=== PATIENT | female | born 1995 | race Caucasian/White ===

== ENCOUNTER → 2022-01-25 16:16 | Outpatient (BNVA) | payer OTHER, SELFPAY | PROVIDERS: Family Provider Family Medicine; Visit Provider Family Medicine | DX: Z00.00 Encounter for general adult medical examination without abnormal findings (principal); Z13.220 Encounter for screening for lipoid disorders; R00.2 Palpitations | CPT/HCPCS: 80053; 80061; 84439; 84443; 85025; 87491; 87591; 87624; 87661 ==

== ENCOUNTER → 2022-02-01 13:53 | Outpatient (BNVA) | payer OTHER, SELFPAY | PROVIDERS: Family Provider Family Medicine; PCP Family Medicine; Visit Provider Family Medicine | DX: Z20.9 Contact with and (suspected) exposure to unspecified communicable disease (principal) | CPT/HCPCS: 80074; 86695; 86696; 86705; 86706; 87077; 87186; 87340; 87806 ==

== ENCOUNTER → 2022-05-17 09:22 | Outpatient (BNVA) | payer OTHER, SELFPAY | PROVIDERS: Family Provider Family Medicine; PCP Family Medicine; Visit Provider Family Medicine | DX: R30.0 Dysuria (principal) | CPT/HCPCS: 81000; 87077; 87086; 87184 ==

== ENCOUNTER 2022-08-18 00:48 | Emergency (ER) | payer OTHER, SELFPAY ==
[2022-08-18 00:53] VITALS: BP 130/87; PULSE 100; RESP 18; TEMP 36.8; O2SAT 98; BMI 25.0
--- NOTE | 2022-08-18 01:04 | ED_ITS ---
HPI - Abdominal Pain General: Chief Complaint: Abdominal Pain Stated Complaint: abd pain Time Seen by Provider: 08/18/22 00:53 Source: patient Mode of arrival: ambulatory Limitations: no limitations History of Present Illness: 27-year-old female states she has been having upper abdominal pain over the last 3 days she states she had a tries to drink in [facility] and has been having epigastric along with right upper quadrant pain since then. States she has been having some nausea as well states pain is currently 3 out of 10 denies any fever denies any vomiting denies any diarrhea. She denies any worsening proving factors. Associated Symptoms: Reports nausea; Denies chills, dysuria and fever(s) Review of Systems Const: Denies: fever(s), chills, body aches or change in appetite Eyes: Denies: blurry vision or eye discomfort ENMT: Denies: throat pain or dental pain Card: Denies: chest pain Resp: Denies: dyspnea GI: Reports: abdominal pain and nausea : Denies: dysuria Musc: Denies: neck pain or back pain Skin/Breast: Denies: rash Neuro: Denies: headache(s) Psych: Denies: depression Brian/Lymph: Denies: easy bruising All/Imm: Denies: urticaria PFSH ED PFSH: Medical History (Updated 08/18/22 @ 02:30 by Juventino Tello MD) No pertinent past medical history Social History (Updated 08/18/22 @ 01:05 by Juventino Tello MD) Substance/Drug Use: never Physical Exam Const: COMMON NORMALS: no acute distress, patient oriented x3 and healthy appearing HENMT: COMMON NORMALS: normocephalic and atraumatic HEAD & SCALP: normocephalic and atraumatic Eye: COMMON NORMALS: Equal, round and reactive pupils present and EOMs intact bilaterally PUPIL: Yes Equal, round and reactive pupils present Neck/C-Spine: COMMON NORMALS: full ROM and supple Chest: COMMONS NORMALS: normal inspection of the chest and normal palpation of entire chest wall Resp: COMMON NORMALS: normal respiratory effort, No retractions, No use of accessory muscles and clear to auscultation bilaterally AUSCULTATION: clear to auscultation bilaterally Cardio: COMMON NORMALS: regular rate, regular rhythm and No murmurs present (Cardio) RATE: regular rate RHYTHM: regular rhythm GI: COMMON NORMALS: Normal to inspection, nondistended, normoactive bowel sounds present, Soft to palpation, non-tender and no masses PALPATION: Yes Soft to palpation Extremity: COMMON NORMALS: normal to inspection and full ROM Neuro: COMMON NORMALS: patient oriented x3, moves all extremities and no focal motor deficits Psych: COMMON NORMALS: mental status grossly normal, Normal thought process present and cooperative THOUGHT PROCESS: Normal thought process present Skin: COMMON NORMALS: no rashes or lesions noted and no wounds GENERAL SKIN EXAM: no rashes or lesions noted Course Vital Signs: Vital signs: Vital Signs Temperature 98.2 F 08/18/22 00:53 Pulse Rate 82 08/18/22 01:19 Respiratory Rate 16 08/18/22 01:19 Blood Pressure 116/80 08/18/22 01:19 Pulse Oximetry 100 08/18/22 01:19 Oxygen Delivery Me thod 08/18/22 01:19 MDM - Abdominal Pain Medical Decision Making Patient presents here with abdominal pain likely gastritis she feels much improved here blood work and ultrasound of her gallbladder is normal she is stable for discharge we will place her on Protonix she is to follow-up with PCP and return if worsening. Lab Data 08/18/22 01:09 08/18/22 01:09 Labs/Radiology: Laboratory Results WBC 9.6 10^3/uL (4.0-10.0) 08/18/22 01:09 RBC 4.93 10^6/uL (4.1-5.3) 08/18/22 01:09 Hgb 15.1 g/dL (11.5-15.3) 08/18/22 01:09 Hct 44.1 % (37.0-47.0) 08/18/22 01:09 MCV 89.5 fl (81-99) 08/18/22 01:09 MCH 30.6 pg (28.0-34.0) 08/18/22 01:09 MCHC 34.2 g/dL (30.0-36.0) 08/18/22 01:09 RDW 11.9 % (12.1-15.1) L 08/18/22 01:09 Plt Count 325 10^3/cmm (130-400) 08/18/22 01:09 MPV 9.7 fL (7.4-10.4) 08/18/22 01:09 Neut % (Auto) 68.9 % 08/18/22 01:09 Lymph % (Auto) 20.4 % 08/18/22 01:09 [place] % (Auto) 8.6 % 08/18/22 01:09 Eos % (Auto) 1.6 % 08/18/22 01:09 Baso % (Auto) 0.3 % 08/18/22 01:09 Neut # (Auto) 6.64 10^3/uL (1.8-7.7) 08/18/22 01:09 Lymph # (Auto) 2.0 10^3/uL (0.8-4.8) 08/18/22 01:09 [place] # (Auto) 0.8 10^3/uL (0.2-0.9) 08/18/22 01:09 Eos # (Auto) 0.2 10^3/uL (0.0-0.8) 08/18/22 01:09 Baso # (Auto) 0.0 10^3/uL (0.0-0.1) 08/18/22 01:09 Nucleated RBC % (auto) 0 % 08/18/22 01:09 Nucleated RBCs # 0.0 /100WBC 08/18/22 01:09 Sodium 138 mmol/L (136-145) 08/18/22 01:09 Potassium 4.0 mmol/L (3.5-5.1) 08/18/22 01:09 Chloride 103 mmol/L (98-107) 08/18/22 01:09 Carbon Dioxide 24 mmol/L (22-29) 08/18/22 01:09 Anion Gap 15.0 (5-19) 08/18/22 01:09 BUN 17 mg/dL (6-20) 08/18/22 01:09 Creatinine 0.7 mg/dL (0.5-0.9) 08/18/22 01:09 GFR Calculation 99.6 mL/min (90-130) 08/18/22 01:09 Glucose 90 mg/dL (65-115) 08/18/22 01:09 Calculated Osmolality 287 mOsm/kg (285-295) 08/18/22 01:09 Calcium 9.4 mg/dL (8.5-10.5) 08/18/22 01:09 Total Bilirubin 0.6 mg/dL (0.15-1.2) 08/18/22 01:09 AST 15 U/L (0-32) 08/18/22 01:09 ALT 18 U/L (0-33) 08/18/22 01:09 Alkaline Phosphatase 51 U/L (35-105) 08/18/22 01:09 Total Protein 7.6 g/dL (6.6-8.7) 08/18/22 01:09 Albumin 4.7 g/dL (3.5-5.2) 08/18/22 01:09 Globulin 2.9 g/dL (1.3-4.6) 08/18/22 01:09 Lipase 38 U/L (13-60) 08/18/22 01:09 HCG, Qual Negative (Negative) 08/18/22 01:09 Discharge Plan Discharge Patient Disposition: Home Clinical Impression: Abdominal pain Prescriptions: New Protonix 40 mg tablet,delayed release (DR/EC) 40 mg PO DAILY Qty: 60 0RF No Action sulfamethoxazole-trimethoprim [Bactrim DS] 800-160 mg tablet 1 tab PO BID Qty: 10 0RF fluoxetine 20 mg capsule 20 mg PO DAILY Qty: 90 3RF Discharge Orders: Discharge ED (Routine); Ordered 08/18/22 Ordered By: Juventino Tello Referrals: Olivier Gold MD [Primary Care Provider] - 1-3 days Discharge Diet: Advance as tolerated Discharge Activity: Resume usual activity Patient Instructions: Abdominal Pain (ED) Coding Level of Care Code ED Milanese Knitting Machine Operator for Chg Fwd Exam Comprehensive
--- NOTE | 2022-08-18 01:04 | USR_ITS ---
PROCEDURE INFORMATION: Exam: US Abdomen, Limited; Right Upper Quadrant Exam date and time: 08/18/2022 1:28 AM Age: 27 years old Clinical indication: Abdominal pain; Patient HX: Right flank pain x 4 days; Additional info: Abd pain TECHNIQUE: Imaging protocol: Real time ultrasound of the abdomen with image documentation. Limited exam focused on the right upper quadrant. COMPARISON: US gall bladder [id number] 10/04/2018 8:48 PM FINDINGS: Liver: Unremarkable liver, no focal abnormality. Gallbladder: No cholelithiasis. No gallbladder wall thickening or pericholecystic fluid. The gallbladder does not appear abnormally distended at this time. Biliary ducts: No biliary dilation, common duct measures 3.8 mm. Pancreas: Visible pancreas unremarkable. Right kidney: Images of the right kidney show no hydronephrosis. US/US gall bladder [id number] IMPRESSION: 1. No cholelithiasis or biliary tree dilation. 2. Other findings discussed above.
[2022-08-18 01:18] VITALS: RESP 16; O2SAT 99
[2022-08-18] MEDS: ondansetron 2 mg/ML SDV 2 mL 4 MG IVP (01:18)
[2022-08-18] MEDS: sodium chloride 0.9% 1,000 ML 999 ML IV (01:18)
[2022-08-18] MEDS: morphine 4 mg/mL SDV 1 mL IVP (01:18)
[2022-08-18 01:19] VITALS: BP 116/80; PULSE 82; RESP 16; O2SAT 100
[2022-08-18 01:22] LABS: Basophils % 0.3 %; Eosinophils # 0.2 10^3/uL (0.0-0.8); Eosinophils % 1.6 %; Hematocrit 44.1 % (37.0-47.0); Hemoglobin 15.1 g/dL (11.5-15.3); Lymphocytes % 20.4 %; Mean Corpuscular HGB Conc 34.2 g/dL (30.0-36.0); Mean Corpuscular Hemoglobin 30.6 pg (28.0-34.0); Mean Corpuscular Volume 89.5 fl (81-99); Mean Platelet Volume 9.7 fL (7.4-10.4); Monocytes # 0.8 10^3/uL (0.2-0.9); Monocytes % 8.6 %; Neutrophils # 6.64 10^3/uL (1.8-7.7); Neutrophils % 68.9 %; Nucleated Red Blood Cells % 0 %; Platelet Count 325 10^3/cmm (130-400); Red Blood Count 4.93 10^6/uL (4.1-5.3); Red Cell Distribution Width 11.9 % (12.1-15.1); White Blood Count 9.6 10^3/uL (4.0-10.0)
[2022-08-18 01:33] LABS: HCG, Serum Qual Negative (Negative)
[2022-08-18 01:42] LABS: Alanine Aminotransferase 18 U/L (0-33); Albumin Level 4.7 g/dL (3.5-5.2); Alkaline Phosphatase 51 U/L (35-105); Aspartate Amino Transferase 15 U/L (0-32); Blood Urea Nitrogen 17 mg/dL (6-20); Calcium 9.4 mg/dL (8.5-10.5); Carbon Dioxide 24 mmol/L (22-29); Chloride 103 mmol/L (98-107); Creatinine Clr Calc Pharmacy 120.3275; Globulin 2.9 g/dL (1.3-4.6); Glomerular Filtration Rate 99.6 mL/min (90-130); Glucose 90 mg/dL (65-115); Lipase 38 U/L (13-60); Osmolality Calculated 287 mOsm/kg (285-295); Sodium 138 mmol/L (136-145); Total Bilirubin 0.6 mg/dL (0.15-1.2); Total Protein 7.6 g/dL (6.6-8.7)
[2022-08-18 02:44] VITALS: BP 112/66; PULSE 83; RESP 16; O2SAT 99
== END 2022-08-18 02:48 | disposition home or self-care (01) ==
PROVIDERS: Emergency Provider Emergency Medicine; PCP Family Medicine
DX: R10.10 Upper abdominal pain, unspecified (principal)
CPT/HCPCS: 76705; 80053; 83690; 84703; 85025; 96361; 96374; 96375; 99285; J2270; J2405; J7030

== ENCOUNTER 2023-02-01 12:45 | Emergency (ER) | payer OTHER, SELFPAY ==
[2023-02-01 12:54] VITALS: BP 123/88; PULSE 87; RESP 18; TEMP 36.8; O2SAT 100
[2023-02-01 13:19] LABS: Basophils % 0.4 %; Eosinophils % 0.4 %; Hematocrit 41.1 % (37.0-47.0); Lymphocytes # 2.4 10^3/uL (0.8-4.8); Lymphocytes % 32.5 %; Mean Corpuscular HGB Conc 34.1 g/dL (30.0-36.0); Mean Corpuscular Hemoglobin 30.3 pg (28.0-34.0); Mean Platelet Volume 9.7 fL (7.4-10.4); Monocytes # 0.6 10^3/uL (0.2-0.9); Monocytes % 8.3 %; Neutrophils # 4.22 10^3/uL (1.8-7.7); Neutrophils % 58.3 %; Nucleated Red Blood Cells % 0 %; Platelet Count 338 10^3/cmm (130-400); Red Blood Count 4.62 10^6/uL (4.1-5.3); Red Cell Distribution Width 11.9 % (12.1-15.1); White Blood Count 7.2 10^3/uL (4.0-10.0)
[2023-02-01 13:32] LABS: HCG, Serum Qual Negative (Negative)
[2023-02-01 13:40] LABS: Alanine Aminotransferase 12 U/L (0-33); Albumin Level 4.7 g/dL (3.5-5.2); Alkaline Phosphatase 48 U/L (35-105); Anion Gap 14.7 (5-19); Aspartate Amino Transferase 16 U/L (0-32); Blood Urea Nitrogen 13 mg/dL (6-20); Calcium 9.2 mg/dL (8.5-10.5); Carbon Dioxide 26 mmol/L (22-29); Chloride 102 mmol/L (98-107); Creatinine Clr Calc Pharmacy 123.7547; Globulin 2.9 g/dL (1.3-4.6); Glomerular Filtration Rate 99.6 mL/min (90-130); Glucose 85 mg/dL (65-115); Lipase 54 U/L (13-60); Osmolality Calculated 287 mOsm/kg (285-295); Potassium 3.7 mmol/L (3.5-5.1); Sodium 139 mmol/L (136-145); Total Bilirubin 0.6 mg/dL (0.15-1.2); Total Protein 7.6 g/dL (6.6-8.7)
--- NOTE | 2023-02-01 13:42 | W.ED.ABDPA2 ---
HPI - Abdominal Pain General: Chief Complaint: Abdominal Pain Stated Complaint: upper abd pain Time Seen by Provider: 02/01/23 13:21 Source: patient Mode of arrival: ambulatory History of Present Illness: 27-year-old female presents emergency complaining of epigastric discomfort. This been a longstanding issue she was previously on pantoprazole and was advised to switch to fiber supplement and probiotic she is still having discomfort time she denies any dysuria urgency frequency. Has not had any vomiting or diarrhea no hematochezia melena or hematemesis. No dysuria urgency or frequency. No fever sweats or chills. No productive cough or shortness of breath MD elicited complaint: abdominal pain Pertinent past history: none Onset (ago): minute(s) Pain Consistency: intermittent Location: Epigastric Severity: mild Quality: cramping Exacerbating factors: nothing Relieving factors: nothing Associated Symptoms: Reports bloating, GI cramping and nausea; Denies anorexia, belching, change in bowel habits, change in stool character, chills, coffee ground emesis, constipation, diarrhea, dyspepsia, dysuria, excessive flatus, fever(s), heartburn, hematochezia, hematuria, hematemesis, fecal incontinence, loose stools, melena, poor appetite, syncope and vomiting Review of Systems Const: Denies: fever(s) or chills ENMT: Denies: throat pain, ear or mastoid pain, nasal discharge or nasal congestion Card: Denies: syncope Resp: Denies: dyspnea, productive cough or non-productive cough GI: Reports: nausea, bloating and GI cramping; Denies: vomiting, hematemesis, coffee ground emesis, heartburn, diarrhea, constipation, belching, excessive flatus, fecal incontinence, change in bowel habits, change in stool character, hematochezia or melena : Denies: dysuria or hematuria Skin/Breast: Denies: rash or pruritus PFSH ED PFSH: Medical History Gastritis Surgical History History of breast augmentation History of eye surgery 2011 - due to eye turning inward S/P wisdom tooth extraction Social History (Reviewed 02/01/23 @ 13:53 by ALIREZA Sheldon Substance/Drug Use: never Physical Exam Const: GENERAL APPEARANCE: cooperative and comfortable ORIENTATION/CONSCIOUSNESS: Yes awake, Yes oriented to person, Yes oriented to place and Yes oriented to time HENMT: COMMON NORMALS: normocephalic, atraumatic and hearing grossly normal bilaterally HEAD & SCALP: normocephalic and atraumatic Resp: COMMON NORMALS: normal respiratory effort, No retractions, No use of accessory muscles and clear to auscultation bilaterally AUSCULTATION: clear to auscultation bilaterally Cardio: COMMON NORMALS: regular rate, regular rhythm and No murmurs present (Cardio) RATE: regular rate RHYTHM: regular rhythm GI: COMMON NORMALS: Soft to palpation and No hepatosplenomegaly present AUSCULTATION: Yes normoactive bowel sounds PALPATION: Yes Soft to palpation, No Tenderness to palpation present (GI), No Guarding due to palpation present (GI) and Yes No hepatosplenomegaly present Extremity: COMMON NORMALS: normal to inspection, capillary refill normal, no clubbing, cyanosis or edema, no calf tenderness and no pedal edema Neuro: SENSORIUM/ORIENTATION: Yes oriented to person, Yes oriented to place and Yes oriented to time Skin: COMMON NORMALS: no rashes or lesions noted GENERAL SKIN EXAM: no rashes or lesions noted Course Vital Signs: Vital signs: Vital Signs Temperature 98.2 F 02/01/23 15:23 Pulse Rate 87 02/01/23 15:23 Respiratory Rate 18 02/01/23 15:23 Blood Pressure 123/88 02/01/23 15:23 Pulse Oximetry 100 02/01/23 15:23 Oxygen Delivery Me thod Room Air 02/01/23 12:54 MDM - Abdominal Pain Medical Decision Making Labs unremarkable no sign of acute upper GI bleed H. pylori negative urine negative. We will start her on pantoprazole 40 twice daily for 2 weeks then daily additionally use Carafate as needed follow-up with her primary care doctor if this persists symptoms persist she may need further evaluation including possible endoscopy. Laboratory studies today were not indicative of acute cholecystitis exam did not show any acute abdomen no advanced imaging was done. Medical Records I reviewed the patient's medical records. Lab Data I reviewed the patient's lab results. 02/01/23 13:06 02/01/23 13:06 Labs/Radiology: Radiology Impressions Abdomen/Pelvis CT 02/01/23 14:22 IMPRESSION: 1. Limited noncontrast examination without CT evidence of acute intra-abdominal or pelvic pathology. 2. Additional findings, as above. Laboratory Results WBC 7.2 10^3/uL (4.0-10.0) 02/01/23 13:06 RBC 4.62 10^6/uL (4.1-5.3) 02/01/23 13:06 Hgb 14.0 g/dL (11.5-15.3) 02/01/23 13:06 Hct 41.1 % (37.0-47.0) 02/01/23 13:06 MCV 89.0 fl (81-99) 02/01/23 13:06 MCH 30.3 pg (28.0-34.0) 02/01/23 13:06 MCHC 34.1 g/dL (30.0-36.0) 02/01/23 13:06 RDW 11.9 % (12.1-15.1) L 02/01/23 13:06 Plt Count 338 10^3/cmm (130-400) 02/01/23 13:06 MPV 9.7 fL (7.4-10.4) 02/01/23 13:06 Neut % (Auto) 58.3 % 02/01/23 13:06 Lymph % (Auto) 32.5 % 02/01/23 13:06 [place] % (Auto) 8.3 % 02/01/23 13:06 Eos % (Auto) 0.4 % 02/01/23 13:06 Baso % (Auto) 0.4 % 02/01/23 13:06 Neut # (Auto) 4.22 10^3/uL (1.8-7.7) 02/01/23 13:06 Lymph # (Auto) 2.4 10^3/uL (0.8-4.8) 02/01/23 13:06 [place] # (Auto) 0.6 10^3/uL (0.2-0.9) 02/01/23 13:06 Eos # (Auto) 0.0 10^3/uL (0.0-0.8) 02/01/23 13:06 Baso # (Auto) 0.0 10^3/uL (0.0-0.1) 02/01/23 13:06 Nucleated RBC % (auto) 0 % 02/01/23 13:06 Nucleated RBCs # 0.0 /100WBC 02/01/23 13:06 Sodium 139 mmol/L (136-145) 02/01/23 13:06 Potassium 3.7 mmol/L (3.5-5.1) 02/01/23 13:06 Chloride 102 mmol/L (98-107) 02/01/23 13:06 Carbon Dioxide 26 mmol/L (22-29) 02/01/23 13:06 Anion Gap 14.7 (5-19) 02/01/23 13:06 BUN 13 mg/dL (6-20) 02/01/23 13:06 Creatinine 0.7 mg/dL (0.5-0.9) 02/01/23 13:06 GFR Calculation 99.6 mL/min (90-130) 02/01/23 13:06 Glucose 85 mg/dL (65-115) 02/01/23 13:06 Calculated Osmolality 287 mOsm/kg (285-295) 02/01/23 13:06 Calcium 9.2 mg/dL (8.5-10.5) 02/01/23 13:06 Total Bilirubin 0.6 mg/dL (0.15-1.2) 02/01/23 13:06 AST 16 U/L (0-32) 02/01/23 13:06 ALT 12 U/L (0-33) 02/01/23 13:06 Alkaline Phosphatase 48 U/L (35-105) 02/01/23 13:06 Total Protein 7.6 g/dL (6.6-8.7) 02/01/23 13:06 Albumin 4.7 g/dL (3.5-5.2) 02/01/23 13:06 Globulin 2.9 g/dL (1.3-4.6) 02/01/23 13:06 Lipase 54 U/L (13-60) 02/01/23 13:06 HCG, Qual Negative (Negative) 02/01/23 13:06 Urine Color Yellow (Yellow) 02/01/23 13:42 Urine Appearance Cloudy (CLEAR) A 02/01/23 13:42 Urine pH 8 (5-7) H 02/01/23 13:42 Ur Specific [place] 1.015 (1.005-1.030) 02/01/23 13:42 Urine Protein Neg (Negative) 02/01/23 13:42 Urine Glucose (UA) Norm (Normal) 02/01/23 13:42 Urine Ketones 2+ (Negative) H 02/01/23 13:42 Urine Blood Neg (Negative) 02/01/23 13:42 Urine Nitrate Negative (Negative) 02/01/23 13:42 Urine Bilirubin Neg (Negative) 02/01/23 13:42 Urine Urobilinogen Neg mg/dL (Negative) 02/01/23 13:42 Ur Leukocyte Esterase Trace (Negative) H 02/01/23 13:42 Urine RBC Rare /hpf (0-2) 02/01/23 13:42 Urine WBC 0-4 /hpf (0-5) H 02/01/23 13:42 Ur Squamous Epith Cells 0-4 /hpf (0-5) H 02/01/23 13:42 Triple Phos Crystals 5-10 /hpf H 02/01/23 13:42 Amorphous Sediment 4+ /hpf 02/01/23 13:42 Urine Bacteria Trace /hpf (NONE) 02/01/23 13:42 H. pylori IgG Antibody Negative (Negative) 02/01/23 13:06 Discharge Plan Discharge Patient Disposition: Home Clinical Impression: Epigastric abdominal pain Condition: Stable Prescriptions: New pantoprazole 40 mg tablet,delayed release (DR/EC) 40 mg PO BID 14 Days Qty: 45 0RF Rx Instructions: Twice a day for 14 days then daily Carafate 1 gram tablet 1 g PO Q6H PRN (Reason: dyspepsia) 28 Days Qty: 200 0RF No Action ibuprofen 200 mg Tablet 600 mg PO Q8H PRN (Reason: Pain) Hair,Skin and Nails Tablet 1 tab PO DAILY Discharge Orders: Discharge ED (Routine); Ordered 02/01/23 Ordered By: Alex Haney Referrals: Olivier Gold MD [Primary Care Provider] - Discharge Diet: Usual diet Discharge Activity: Increase activity as tolerated Patient Instructions: Abdominal Pain (ED), Opioid Safety, Pain Management Coding Level of Care Code ED Baggage Security Checker for Deepalig Rodriguez
[2023-02-01] MEDS: ondansetron 2 mg/ML SDV 2 mL 4 MG IVP (14:03)
[2023-02-01] MEDS: lidocaine 2% viscous 15 ML, aluminum-mag hydrox-simethicon 30 ML, sucralfate oral liq 1 GM PO (14:03)
[2023-02-01] MEDS: sodium chloride 0.9% 1,000 ML 999 ML IV (14:03)
--- NOTE | 2023-02-01 14:22 | CTR_ITS ---
PROCEDURE INFORMATION: Exam: CT Abdomen And Pelvis Without Contrast Exam date and time: 02/01/2023 2:33 PM Age: 27 years old Clinical indication: Abdominal pain; Localized; Right lower quadrant (rlq); Patient HX: Starting last night she got a sharp stabbing pain in her rlq, PT denies trouble urinating. She has had this pain before but its worse now. Denies vomiting. TECHNIQUE: Imaging protocol: Computed tomography of the abdomen and pelvis without contrast. Axial, coronal and sagittal reformatted images were created and reviewed. Radiation optimization: All CT scans at this facility use at least one of these dose optimization techniques: automated exposure control; mA and/or kV adjustment per patient size (includes targeted exams where dose is matched to clinical indication); or iterative reconstruction. REPORTING DATA: Count of CT and Cardiac NM exams in prior 12 months: This patient has received 0 known CTs and 0 known cardiac nuclear medicine studies in the 12 months prior to the current study. COMPARISON: CT abdomen pelvis w con* [id number] 10/04/2018 9:11 PM RADIATION DOSE METRICS: Total DLP (mGy-cm): 477.28 FINDINGS: Liver: Unremarkable. Gallbladder and bile ducts: No radiodense gallstones. No biliary ductal dilatation. Pancreas: Unremarkable. Spleen: Unremarkable. Adrenal glands: Normal. No mass. Kidneys and ureters: No mass. No radiodense calculi. No hydronephrosis. Stomach and bowel: No bowel wall thickening. No obstruction. No pneumatosis. Appendix: Normal. Intraperitoneal space: No free fluid. No organized fluid collection. No free air. Vasculature: Unremarkable. No aneurysm. Lymph nodes: No pathologically enlarged lymph nodes. Urinary bladder: Unremarkable as visualized. Reproductive: Unremarkable. Bones/joints: No acute osseous abnormality. Soft tissues: Breast implants in place. Tiny, fat containing umbilical hernia. CT/CT abdomen pelvis wo con [id number] IMPRESSION: 1. Limited noncontrast examination without CT evidence of acute intra-abdominal or pelvic pathology. 2. Additional findings, as above.
[2023-02-01 14:36] LABS: Add Urine Microscopic? YES; Bilirubin Urine Neg (Negative); Blood Urine Neg (Negative); Glucose Urine UA Norm (Normal); Ketones Urine 2+ (Negative); Leukocyte Esterase Urine Trace (Negative); Nitrate Urine Negative (Negative); Protein Urine Neg (Negative); Specific Gravity, Urine 1.015 (1.005-1.030); Urine Appearance Cloudy (CLEAR); Urine Color Yellow (Yellow); Urobilinogen Urine Neg (Negative); pH Urine 8 (5-7)
[2023-02-01 14:37] LABS: Amorphous Sediment Urine 4+ /hpf; Bacteria Urine TRACE /hpf; RBC Urine RARE /hpf (0-2); Squamous Epithelial Cell Urine 0-4 /hpf (0-5); WBC Urine 0-4 /hpf (0-5)
[2023-02-01 14:39] LABS: Add Urine Culture? No
[2023-02-01 15:15] LABS: H. Pylori IgG Antibody Negative (Negative)
[2023-02-01 15:23] VITALS: BP 123/88; PULSE 87; RESP 18; TEMP 36.8; O2SAT 100
== END 2023-02-01 15:28 | disposition home or self-care (01) ==
PROVIDERS: Physician Assistant; Emergency Provider Family Medicine; PCP Family Medicine
DX: R10.13 Epigastric pain (principal)
CPT/HCPCS: 74176; 80053; 81001; 83690; 84703; 85025; 86677; 96374; 99285; J2405; J7030

== ENCOUNTER → 2023-02-09 08:55 | Outpatient (BNVA) | payer OTHER, SELFPAY | PROVIDERS: PCP Family Medicine; Visit Provider Family Medicine | DX: R30.0 Dysuria (principal) | CPT/HCPCS: 81000; 87077; 87086; 87184 ==

== ENCOUNTER 2025-01-10 16:30 | Emergency (ER) | payer OTHER, SELFPAY ==
--- NOTE | 2025-01-10 17:07 | W.ED.GENADLT ---
HPI - General Adult General: Chief complaint: Recheck/Abnormal Lab/Rx Stated complaint: needs suture removed Time Seen by Provider: 01/10/25 16:49 History of Present Illness: 29-year-old female presents emergency room wanting of a stitch removed. She had several cosmetic procedures done in [facility]. She had some nurse friends of hers remove some of the sutures from her umbilicus there is 1 in the inferior portion of the umbilicus that is deep they were not able to get out want it to be evaluated today. Related Data Home Medications ?Medication ?Instructions ?Recorded ?Confirmed ibuprofen 200 mg tablet 600 mg PO Q8H PRN Pain 02/01/23 04/18/23 multivitamin with minerals 1 tab PO DAILY 02/01/23 04/18/23 (Hair,Skin and Nails tablet) Previous Rx's ?Medication ?Instructions ?Recorded fluconazole 100 mg tablet 100 mg PO Q72H #3 tabs 04/18/23 (Diflucan) sulfamethoxazole 800 1 tab PO Q12H #14 tabs 04/18/23 mg-trimethoprim 160 mg tablet (Bactrim DS) mupirocin 2 % topical ointment 1 applic topical BID #15 grams 04/20/23 pantoprazole 40 mg tablet,delayed 40 mg PO DAILY #30 tabs 11/14/23 release mupirocin 2 % topical ointment 1 applic topical DAILY #15 grams 01/10/25 (Centany) Allergies Allergy/AdvReac Type Severity Reaction Status Date / Time No Known Allergies Allergy Verified 04/18/23 08:22 [facility] ED PFSH: Medical History Gastritis Surgical History History of breast augmentation History of eye surgery 2011 - due to eye turning inward S/P wisdom tooth extraction Social History Substance/Drug Use: never Physical Exam GI: OTHER: Examination of the umbilicus there is some dehisced wounds particularly along the left edge of the umbilicus extending vertically. No redness erythema the open areas are very small and have mucousy eschar at their bases. No localized erythema or induration. At the base of the navel there is evidence of a single suture. Appears to be an interrupted suture the free ends are easily visible the knot itself is not. Course Vital Signs: Vital signs: Vital Signs Temperature 97.8 F 01/10/25 17:11 Pulse Rate 88 01/10/25 17:14 Respiratory Rate 16 01/10/25 17:14 Blood Pressure 123/65 01/10/25 17:14 Pulse Oximetry 98 01/10/25 17:14 Oxygen Delivery Me thod Room Air 01/10/25 17:11 MDM - General Adult Medical Decision Making There is no signs of infection. She had someone else nurse friend remove some of the other sutures some of the edges of that suture line look to have opened a bit I do not think there is any active infection at this time. Her main reason for coming in what she wanted that single remaining suture removed. I do not think the removal of the suture is an emergency I am very hesitant to remove it given this was a cosmetic procedure I am not sure what that sutures intended for or what it holds or when the plastic surgeon intended for it to be removed. She had the surgery done in [facility]. Recommend to her that she contact the surgeon and follow-up with her primary care doctor after the surgeon and primary confer. No emergent condition present at this time No radiology studies performed this visit Discharge Plan Discharge Patient Disposition: Home Clinical Impression: Retained suture Condition: Stable Prescriptions: New mupirocin [Centany] 2 % ointment 1 applic topical DAILY Qty: 15 0RF No Action sulfamethoxazole-trimethoprim [Bactrim DS] 800-160 mg tablet 1 tab PO Q12H Qty: 14 0RF fluconazole [Diflucan] 100 mg tablet 100 mg PO Q72H Qty: 3 0RF mupirocin 2 % ointment 1 applic topical BID Qty: 15 0RF pantoprazole 40 mg tablet,delayed release (DR/EC) 40 mg PO DAILY Qty: 30 6RF ibuprofen 200 mg Tablet 600 mg PO Q8H PRN (Reason: Pain) Hair,Skin and Nails Tablet 1 tab PO DAILY Discharge Orders: Discharge ED (Routine); Ordered 01/10/25 Ordered By: Alex Haney Referrals: Olivier Gold MD [Primary Care Provider] - Discharge Diet: Usual diet Discharge Activity: Limit activity as instructed Patient Instructions: Opioid Safety, Pain Management Activity Restrictions/Additional Instructions: Thank you for choosing [facility] for your healthcare needs today. It is very important that you follow up as instructed or that you return to the Emergency Department should you have concerns or if your condition changes or worsens in any way. You are seen emergency room regarding a retained suture from your recent cosmetic procedure. No evidence of active infection on the suture site around the umbilicus. There is a retained suture in the inferior portion of the umbilicus. Would recommend you follow-up with your surgeon regarding this. Alternatively you can allow the suture to extend bowel itself over time. Would keep the areas where it appears there is some dehiscence of this skin treated with topical antibiotic ointment lightly once daily. There is any sign of infection return to the emergency room. Print Language: Korean Coding Level of Care Code ED Tractor Distributor for Hector Frias
[2025-01-10 17:11] VITALS: BP 141/67; PULSE 87; RESP 18; TEMP 36.6; O2SAT 98
[2025-01-10 17:14] VITALS: BP 123/65; PULSE 88; RESP 16; O2SAT 98
== END 2025-01-10 17:11 | disposition home or self-care (01) ==
PROVIDERS: Emergency Provider Family Medicine; PCP Family Medicine
DX: Z48.02 Encounter for removal of sutures (principal)
CPT/HCPCS: 99281

== ENCOUNTER → 2025-06-18 12:24 | Outpatient (BNVA) | payer BC, SELFPAY | PROVIDERS: PCP Family Medicine; Visit Provider Family Medicine | DX: Z00.00 Encounter for general adult medical examination without abnormal findings (principal); E53.8 Deficiency of other specified B group vitamins; R53.81 Other malaise; R53.83 Other fatigue; D64.9 Anemia, unspecified; Z51.81 Encounter for therapeutic drug level monitoring; E55.9 Vitamin D deficiency, unspecified | CPT/HCPCS: 80053; 82306; 82607; 83036; 83550; 84439; 84443; 85025 ==